=== PATIENT | male | born 1975 | race Two or more races ===

== ENCOUNTER 2024-01-14 11:03 | Emergency (ER) | payer MEDICAID ==
[~2024-01-14] VITALS: Ht 170.2 cm; Wt 77.1 kg
[2024-01-14 11:12] VITALS: BP 162/96; TEMP 97.9; O2SAT 99
[2024-01-14] MEDS: BUPRENORPHINE HCL 8 MG TAB.SUBL SL ONE (11:30)
[2024-01-14] MEDS ORDERED: BUPR1FIL3 SL (11:59)
[2024-01-14] MEDS ORDERED: BUPRENORPHINE HCL 8 MG TAB.SUBL SL ONE (12:11)
== END 2024-01-14 12:20 | disposition home or self-care (01) ==
LOC: ER 11:16
DX: F11.23 Opioid dependence with withdrawal (principal); F41.9 Anxiety disorder, unspecified